=== PATIENT | male | born 1960 | race Caucasian/White ===

== ENCOUNTER 2021-11-07 14:54 | Day surgery (SDC) | payer BC ==
[2021-11-07] MEDS ORDERED: Phenylephrine 2.5% Ophth Soln 5 ML BOT FS SCH (15:15)
[2021-11-07] MEDS ORDERED: Cyclopentolate 1% Opth Drop 2 ML BOT FS SCH (15:15)
[2021-11-07] MEDS ORDERED: EPINEPHrine 0.3 MG in Ophthalmic Irrigation Solution 500 ML IRR SCH (15:15)
[2021-11-07] MEDS ORDERED: Cyclopentolate 1% Opth Drop 2 ML BOT ONE (15:24)
[2021-11-07] MEDS ORDERED: Phenylephrine 2.5% Ophth Soln 5 ML BOT ONE (15:24)
[2021-11-07 17:52] LABS: SARS-CoV-2 NAA Rapid Test Not Detected (NotDetected)
[2021-11-07] MEDS ORDERED: fentaNYL Citrate/PF 100 MCG/2 ML SYRINGE ONE (18:28)
== END 2021-11-07 20:22 | disposition home or self-care (01) ==
LOC: SDC 14:54
PROVIDERS: ATTEND Ophthalmology Retina Specialist
PROC: 08T53ZZ Resection of Left Vitreous, Percutaneous Approach (ICD-10-PCS; principal; 2021-11-07)
DX: H33.42 Traction detachment of retina, left eye (principal); Z88.5 Allergy status to narcotic agent; Z20.822 Contact with and (suspected) exposure to COVID-19
CPT/HCPCS: J0171; U0002